=== PATIENT | female | born 1995 | race African-American/Black ===

== ENCOUNTER 2020-07-01 07:23 | Emergency (ER) | payer OTHER ==
[~2020-07-01] VITALS: Ht 165.1 cm; Wt 86.4 kg
[2020-07-01] MEDS ORDERED: ibuprofen tablet 400 MG TABLET PO ONE (08:05)
[2020-07-01] MEDS ORDERED: acetaminophen 325mg tablet PO ONE (08:05)
[2020-07-01] MEDS ORDERED: ibuprofen 200mg tablet PO ONE (08:05)
[2020-07-01 08:28] VITALS: BP 147/106
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
--- NOTE | 2020-07-01 08:50 | NUR ---
Notified [facility], Will sent advocate as soon as they can.
--- NOTE | 2020-07-01 09:05 | NUR ---
Spoke with Dr. Starks regarding patient requesting to be seen by another provider. Dr. Starks reported patients chief complaint to Beck FINCH at which he agreed to see patient. I went into room with Beck FINCH to assess patient and evaluate her, I was in room with Beck FINCH the entirety of the examination, examination was appropriate for compaints. Patient discussed concerns and all questions were answer prior to Beck FINCH leaving the room. Patient was given a warm blanket by Dharmesh PADILLA and a glass of water. Patient was educated regarding contact with [facility] and that we were waiting for advocate to arrive to given further information on resources. Patient agreed and curled up on josué.
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
--- NOTE | 2020-07-01 09:49 | NUR ---
Ankit duncan in [facility] - 07/01/20 at 0950 by BENI aggie
--- NOTE | 2020-07-01 09:49 | NUR ---
COLTON ROGER, [employer], [facility] ([phone]), ARRIVES TO SPEAK WITH PATIENT.
--- NOTE | 2020-07-01 10:30 | NUR ---
[facility] FROM [facility] IS HERE AND HAS GIVEN PATIENT RESOURCES FOR [facility] AND HOUSING IN THE LOCAL AREA. PATIENT IS UNSURE OF DISCHARGE PLAN. PATIENT INFORMED TO CONTACT FRIENDS OR FAMILY FOR TRANSPORTATION ARRANGEMENTS BACK HOME.
== END 2020-07-01 11:04 | disposition home or self-care (01) ==
LOC: ER 07:24
DX: M54.5 Low back pain (principal); R42 Dizziness and giddiness; G89.29 Other chronic pain; V87.7XXA Person injured in collision between other specified motor vehicles (traffic), initial encounter; Y93.89 Activity, other specified; Y92.89 Other specified places as the place of occurrence of the external cause; Y99.8 Other external cause status
CPT/HCPCS: 99284